=== PATIENT | male | born 1935 | race Caucasian/White ===

== ENCOUNTER 2016-12-14 11:27 | Day surgery (SDC) | payer MEDICARE ==
[~2016-12-14] VITALS: Ht 172.7 cm; Wt 77.0 kg
[~2016-12-14 11:27] MED LIST: 0.9% Sodium Chloride 1,000 ML IV SCH; ASC500 PO; ASPI81TA2 PO; DOCU250C7 PO; FERR256T PO; LISI10TA PO; METO50TA PO; MULT-1018 PO; NIAC1CAP PO; OMEG1CAP25 PO; SMV40T PO; Sodium Chloride LOK Flush 10 mL Syringe IV PRN; [UNRECOGNIZED DRUG - CODE] PO; fentaNYL-PF 50 mCg/mL 2 mL Inj IVPUSH PRN
[2016-12-14 11:55] VITALS: BP 152/70; PULSE 62; RESP 16; O2SAT 95
[2016-12-14] MEDS ORDERED: HYDR12.5 PO (11:55)
[2016-12-14 12:45] VITALS: BP 146/78; PULSE 66; RESP 12; O2SAT 98
[2016-12-14 12:57] VITALS: BP 145/73; PULSE 66; RESP 14; O2SAT 97
[2016-12-14 13:03] VITALS: BP 148/77; PULSE 70; RESP 14; O2SAT 98
--- NOTE | 2016-12-14 15:50 | ENDO ---
[address] [address] ENDOSCOPY PROCEDURE PATIENT: POLA EDWARD : 1935 MR#: [id number] ADMIT: 12/14/2016 JOB ID: [id number] TYPE OF OPERATION: Esophagogastroduodenoscopy, biopsy. Colonoscopy, biopsy. PREOPERATIVE DIAGNOSIS(ES): Iron deficiency anemia. POSTOPERATIVE DIAGNOSIS(ES): 1. Normal upper endoscopy except for small hiatal hernia. Status post biopsy. 2. A 2 mm cecal polyp near the apex, removed by cold biopsy forceps. 3. A 2 mm sigmoid polyp removed by cold biopsy forceps. 4. Mild sigmoid diverticulosis. 5. Small internal hemorrhoids. ANESTHESIA: Fentanyl 75 mcg, Versed 3 mg IV administered. COMPLICATION: None. BLOOD LOSS: Minimal. DESCRIPTION OF PROCEDURE: After risks and benefits explained to the patient, informed consent was obtained. After anesthesia administered, upper endoscope was inserted into the mouth, intubated in the esophagus, stomach, second portion of duodenum. Mucosa carefully examined. After the procedure done, scope withdrawn, procedure terminated. Colonoscope was inserted per rectum to cecum. Mucosa carefully examined. Prep of the patient was excellent. After the procedure was done, the scope withdrawn, procedure terminated. FINDINGS: Upon inspection of the esophagus, esophagus was normal without masses, ulcers, lesions. Z-line located at 40 cm from incisors. Upon entering the stomach, there were no masses, ulcers, or lesions seen. Retroflexion showed small hiatal hernia. Duodenal bulb, first and second portion were normal. biopsy done at the duodenum. Upon inspection of the anus, no masses, hemorrhoids, ulcers, or fissures that were seen. Throughout the entire examination, there is a 2 mm cecal polyp right next to the appendix that was removed by cold biopsy forceps. There was a 2 mm sigmoid polyp removed by cold biopsy forceps. There was mild sigmoid diverticulosis. Retroflexion showed small internal hemorrhoids. IMPRESSIONS: 1. Small hiatal hernia. 2. Small internal hemorrhoids. 3. Mild sigmoid diverticulosis. 4. A 2 mm cecal polyp removed by cold biopsy forceps. 5. A 2 mm sigmoid polyp, removed by cold biopsy forceps. RECOMMENDATIONS: Await pathology results. Repeat colonoscopy in five years given history of tubular adenoma polyps. [facility]
--- NOTE | 2016-12-19 14:54 | PATH ---
SURGICAL PATHOLOGY Attending Physician:Mark Polanco MD CASE STATUS: Signed Out PATIENT NAME: POLA EDWARD PID: [id number] : 1935 DATE COLLECTED:12/14/2016 20:06 SPECIMEN: 1: Duodenum, Biopsy 2: Colon, Biopsy 3: Colon, Biopsy CLINICAL HISTORY: 1). DUODENUM BIOPSY 2). CECAL POLYP 3). SIGMOID COLON POLYP FINAL DIAGNOSIS: 1. Duodenum, Biopsy: Duodenal mucosa with no diagnostic abnormality. Negative for active inflammation, features of sprue, dysplasia and malignancy. 2. Cecum, Polyp, Biopsy: Colonic mucosa with mild surface hyperplastic-type changes and a small benign lymphoid aggregate. Additional levels were examined. Negative for dysplasia and malignancy. 3. Sigmoid Colon, Polyp, Biopsy: Hyperplastic polyp. ICD10 K62.1, K63.5 GROSS DESCRIPTION: The specimen is received in three formalin filled containers labeled with the patient's name. 1). The specimen is sublabeled "duodenum" and consists of 2 portions of tissue which aggregate to 0.3 x 0.3 x 0.2 CM. 2). The specimen is sublabeled "cecal polyp" and consists of 3 portions of tissue which aggregate to 0.2 x 0.2 x 0.2 CM. The specimen is entirely submitted in cassette 2A. 3). The specimen is sublabeled "sigmoid colon polyp" and consists of a 0.3 x 0.2 x 0.2 CM portion of tissue which is entirely submitted in cassette 3A. 12/15/2016 [facility] ICD-9 CODES: CPT CODES: 1: 12003 2: 93668 3: 03783 Electronically Signed Out Destinee Mejia MD [facility] Pathology [facility] [address], [place] [address] Technical component performed at [facility], [facility] [address], [place], [address]
== END 2016-12-14 23:59 | disposition home or self-care (01) ==
LOC: END 11:27
PROVIDERS: ATTEND Internal Medicine Gastroenterology
DX: D50.9 Iron deficiency anemia, unspecified (principal); K57.30 Diverticulosis of large intestine without perforation or abscess without bleeding; K64.8 Other hemorrhoids; K44.9 Diaphragmatic hernia without obstruction or gangrene; I10 Essential (primary) hypertension; Z79.82 Long term (current) use of aspirin; Z79.899 Other long term (current) drug therapy; Z87.891 Personal history of nicotine dependence
CPT/HCPCS: 43239; 45380; 88305; G0500; J7030